=== PATIENT | male | born 1970 | race Caucasian/White ===

== ENCOUNTER 2023-10-23 17:21 | Emergency (ER) | payer OTHER, SELFPAY ==
[2023-10-23 17:28] VITALS: BP 150/98
--- NOTE | 2023-10-23 18:21 | ED.GENMED ---
History of Present Illness
General
Chief Complaint: Abdominal Pain
Source: patient
Exam Limitations: none
Time Seen by Provider: 10/23/23 18:20
Nursing documentation reviewed up to this point in time: agreed with
Course
Vital Signs
Initial and Last Documented VS:
Initial Vital Signs
Temp Pulse Resp BP Pulse Ox
98.2 F 87 18 150/98 97
10/23/23 17:28 10/23/23 17:28 10/23/23 17:28 10/23/23 17:28 10/23/23 17:28
Last Documented Vital Signs
Temp Pulse Resp BP Pulse Ox
98.2 F 87 18 150/98 97
10/23/23 17:28 10/23/23 17:28 10/23/23 17:28 10/23/23 17:28 10/23/23 17:28
ED Attending Note
-
Portions of this chart may have been created with voice recognition software.� Occasional wrong word or��sound alike� substitutions may have occurred due to the inherent limitations of voice recognition software.
Discharge Plan
Discharge Date and Time
Print Language: TAJIK
[2023-10-23 19:21] LABS: % Basophils 0.3 % (0-2); % Eosinophils 1.3 % (0-6); % Immature Granulocytes 0.1 % (0-0.5); % Monocytes 9.5 % (1.7-9.3); % Neutrophils 57.8 % (42.2-75.2); Absolute Eosinophils 0.1 10^3/uL (0-0.7); Absolute Lymphocytes 2.3 10^3/uL (1.2-3.4); Absolute Monocytes 0.7 10^3/uL (0.1-0.6); Absolute Neutrophils 4.3 10^3/uL (1.4-6.5); Hematocrit 45.3 % (39.0-52.0); Hemoglobin 15.8 g/dL (13.0-18.0); Mean Corp Hgb Conc. 34.9 g/dL (33.0-37.0); Mean Corpuscular Hgb 30.6 pg (27.0-31.0); Mean Corpuscular Volume 87.6 fL (80.0-94.0); Mean Platelet Volume 10.4 fL (7.4-10.4); Nucleated Red Blood Cells % 0 % (-); Platelet Count 208 10^3/uL (130-400); Red Blood Cell Count 5.17 10^6/uL (4.70-6.10); Red Cell Dist. Width 12.6 % (11.5-14.5); White Blood Cell Count 7.5 10^3/uL (4.8-10.8)
[2023-10-23 19:49] LABS: ALT (SGPT) 20 U/L (0-50); AST (SGOT) 30 U/L (17-59); Albumin 4.4 g/dl (3.5-5.0); Alkaline Phosphatase 64 U/L (38-126); Blood Urea Nitrogen 25 mg/dl (9-20); Calcium 9.6 mg/dl (8.4-10.2); Carbon Dioxide 24 mmol/L (22-30); Chloride 104 mmol/L (98-107); Glucose 88 mg/dl (70-99); Potassium 4.2 mmol/L (3.5-5.1); Sodium 140 mmol/L (135-145); Total Bilirubin 0.8 mg/dl (0.2-1.3); Total Protein 6.8 g/dl (6.3-8.2); eGFR > 60.00
[2023-10-23 20:46] VITALS: BP 146/94
--- NOTE | 2023-10-23 21:16 | ED.GENMED ---
History of Present Illness
<Joselin Deshpande NP - Last Filed: 10/23/23 23:14>
General
Chief Complaint: Abdominal Pain
Source: patient
Exam Limitations: none
Time Seen by Provider: 10/23/23 18:20
Nursing documentation reviewed up to this point in time: agreed with
History of Present Illness
History of Present Illness:
Patient to ED with complaint of increasing pain and erythema at umbilicus. States he was diagnosed with a hernia >6mos ago. No issues until today. Denies fever/chills, n/v/d. Brought self to ED for eval
Past History
<Joselin Deshpande NP - Last Filed: 10/23/23 23:14>
Past History
ED Past Medical History: None
Review of Systems
<Joselin Deshpande NP - Last Filed: 10/23/23 23:14>
Review of Systems
Allergies reviewed?: Yes
All Other Systems: ROS reviewed and negative except as documented in HPI and ROS
Constitutional: Reports no symptoms
EENT: Reports no symptoms
Respiratory: Reports no symptoms
Cardiac: Reports no symptoms
ABD/GI: Reports abdominal pain (Pain and erythema at umbilicus)
: Reports no symptoms
Musculoskeletal: Reports no symptoms
Skin: Reports no symptoms
Neurological: Reports no symptoms
Psychiatric: Reports no symptoms
Phy Exam
<Joselin Deshpande NP - Last Filed: 10/23/23 23:14>
General Physical Exam
General Presentation: well appearing and mild distress
General age: appears stated age
General Skin: warm and dry
General Habitus: normal
General Mental: alert
Cardiovascular Exam
Cardiovascular Exam: regular rate/rhythm
Gastrointestinal Exam
Gastrointestinal Exam: normal bowel sounds, soft, no organomegaly, non distended, no cva tenderness and other (erythema and swelling at umbilicus, moderately tender.)
Musculoskeletal Exam
Musculoskeletal Exam: full ROM and neuro vasc intact
Skin Exam
Skin Exam: normal color, warm/dry and no rash
Psychiatric Exam
Psychiatric Exam: normal mood/affect
Course
<Joselin Deshpande NP - Last Filed: 10/23/23 23:14>
Orders/Labs/Results
Orders:
Orders
10/23/23 18:26
IV Insert/Care/Rem.- Treatment PRN
10/23/23 18:48
CT Abd/pelvis W Iv Cont Urgent
Comment:
Reason For Exam: umbilical pain, swelling, erythema
10/23/23 19:09
Complete Blood Count/With Diff Urgent
Comprehensive Metabolic Panel Urgent
10/23/23 21:14
Ketorolac [Toradol] 30 mg IV NOW STA
Abnormal Lab Results
10/23/23
19:09
Absolute Monos (auto) 0.7 H 10^3/uL
(0.1-0.6)
Monocytes % 9.5 H %
(1.7-9.3)
BUN 25 H mg/dl
(9-20)
10/23/23 19:09
10/23/23 19:09
Vital Signs
Initial and Last Documented VS:
Initial Vital Signs
Temp Pulse Resp BP Pulse Ox
98.2 F 87 18 150/98 97
10/23/23 17:28 10/23/23 17:28 10/23/23 17:28 10/23/23 17:28 10/23/23 17:28
Last Documented Vital Signs
Temp Pulse Resp BP Pulse Ox
98.2 F 70 18 146/94 97
10/23/23 17:28 10/23/23 20:46 10/23/23 17:28 10/23/23 20:46 10/23/23 17:28
<Rogelio Boss DO - Last Filed: 10/24/23 03:11>
Orders/Labs/Results
Orders:
Orders
10/23/23 18:26
IV Insert/Care/Rem.- Treatment PRN
10/23/23 18:48
CT Abd/pelvis W Iv Cont Urgent
Comment:
Reason For Exam: umbilical pain, swelling, erythema
10/23/23 19:09
Complete Blood Count/With Diff Urgent
Comprehensive Metabolic Panel Urgent
10/23/23 21:14
Ketorolac [Toradol] 30 mg IV NOW STA
Abnormal Lab Results
10/23/23
19:09
Absolute Monos (auto) 0.7 H 10^3/uL
(0.1-0.6)
Monocytes % 9.5 H %
(1.7-9.3)
BUN 25 H mg/dl
(9-20)
10/23/23 19:09
10/23/23 19:09
Vital Signs
Initial and Last Documented VS:
Initial Vital Signs
Temp Pulse Resp BP Pulse Ox
98.2 F 87 18 150/98 97
10/23/23 17:28 10/23/23 17:28 10/23/23 17:28 10/23/23 17:28 10/23/23 17:28
Last Documented Vital Signs
Temp Pulse Resp BP Pulse Ox
98.2 F 70 18 146/94 97
10/23/23 17:28 10/23/23 20:46 10/23/23 17:28 10/23/23 20:46 10/23/23 17:28
<Joselin Deshpande NP - Last Filed: 10/23/23 23:14>
*Radiology
Radiology exam reviewed: radiology read reviewed
*Pulse Oximetry
Patient hypoxic: no
*Critical Care Note
Total Time (30-74mins, 75-104mins- exclusive of procedures): Not Applicable
<Joselin Deshpande NP - Last Filed: 10/23/23 23:14>
Update Note
Update Note:
umbilical hernia with peritoneal fat on CT. Hernia reduced bedside by dr. Boss. Will discharge home and he will follow up with general surgery. Given instructions on s/s to return to ED and he is agreeable to plan.
ED Attending Note
<Joselin Deshpande NP - Last Filed: 10/23/23 23:14>
-
Portions of this chart may have been created with voice recognition software.� Occasional wrong word or��sound alike� substitutions may have occurred due to the inherent limitations of voice recognition software.
<Rogelio Boss DO - Last Filed: 10/24/23 03:11>
ED Attending Note
Patient seen and examined by attending physician: Yes
I performed the substantive portion of visit, reviewed & personally made and approve the management plan that is documented in note by myself or BENITA.: Yes
ED Attending Note:
Umbilical fat hernia reduced by me at bedside
Discharge Plan
Departure
Patient Disposition: Home (Routine Discharge)
Date of Disposition: 10/23/23
Time of Disposition: 21:14
Patient with high blood pressure during this ER visit?: No
Condition: Good
Covid-19: Not Applicable
Discharge Problem:
Hernia, umbilical
Instructions: Abdominal wall hernias
Referrals:
Reymundo Mendiola MD [Active] - Call in 1-3 days for appt
Skip Romero MD [Family Provider] -
Interventions
Interventions:
*Risk Screen - Suicide Last Done: 10/23/23 20:28
*General Assessment Last Done: 10/23/23 20:28
*Neglect/Abuse Screening Last Done: 10/23/23 20:28
*ED COVID-19 Vaccine History Last Done: 10/23/23 20:28
*Nursing Disposition Last Done: 10/23/23 22:08
XT-Unlgmr-Dtmwaocxoi Assessment Last Done: 10/23/23 20:28
Discharge Date and Time
Discharge Date/Time: 10/23/23 22:10
Print Language: EGYPTIAN
[2023-10-23] MEDS: TORADOL 30 MG IV (21:33)
== END 2023-10-23 22:10 | disposition home or self-care (01) ==
LOC: EMR 17:21
PROVIDERS: Emergency Medicine; EMERGENCY PHYSICIAN Emergency Medicine; FAMILY PHYSICIAN Family Medicine
DX: K42.9 Umbilical hernia without obstruction or gangrene (principal)
CPT/HCPCS: 99285; 96374; 74177; 80053; 85025; Q9967

== ENCOUNTER 2023-12-04 06:39 | Day surgery (SDC) | payer OTHER, SELFPAY ==
[2023-11-24 08:32] VITALS: BMI 26.6
[2023-12-04] VITALS (8 sets, daily range): BP systolic 117–143; BP diastolic 75–99; BMI 26.6
--- NOTE | 2023-12-04 07:35 | W.SUR.PREOP ---
Pre-Operative Surgical Note
-
I have examined this patient prior to the performance of the scheduled procedure.
The patient's condition is unchanged from the time of the current History and
Physical and the patient is able to undergo the scheduled procedure.
[2023-12-04] MEDS: TYLENOL 1000 MG PO (08:54)
--- NOTE | 2023-12-04 11:50 | W.IMMPOSTOP ---
Surgical Immed Post Op Note
-
Primary Surgeon: Reymundo Mendiola MD
Assisting Surgeon: None
Pre-op Diagnosis: Umbilical hernia
Post-op Diagnosis: Same
Procedure Performed: Robotic umbilical hernia repair with mesh (HARLEEN approach)
Anesthesia Type: General
Specimen / Cultures: None
Estimated Blood Loss: 7 cc
Complications: None
Operative Findings: 1.5 cm umbilical hernia closed in the transverse direction with a 0 V-Loc 180. Repair reinforced with a 11 cm x 11 cm Bard soft uncoated polypropylene mesh placed in the preperitoneal space.
--- NOTE | 2023-12-04 11:51 | OR.RPT ---
Operative Report
Operative Report
Patient Name: Chester Espino
: 1970
Date of Operation: 12/04/2023
Preoperative Diagnosis: Umbilical hernia
Postoperative Diagnosis: Same
Procedure(s):
Robotic umbilical hernia repair with mesh (HARLEEN approach)
Surgeon(s):
Dr. Mendiola
Photolithographic Stripper(s):
LEIGH Martin
Anesthesia: General
Estimated Blood Loss: 7 cc
Urine Output: None
Drains/Lines/Implants:
11 x 11 cm round Bard soft mesh
Specimens:
None
HPI/Surgical Indications:
This is a 53-year-old male who was seen in my office for a symptomatic umbilical bulge and diagnosed with a reducible umbilical hernia. Risks/Benefits/Alternatives were discussed at length, and the patient agreed to proceed with surgery.
Findings:
1.5 cm umbilical hernia containing preperitoneal fat
Procedure Description:
The patient was brought to the Operating Room and placed in the supine position with the arms tucked. IV antibiotics were infused and Venodyne stockings placed. Following uneventful induction of general endotracheal anesthesia, an orogastric tube
were placed. The abdomen was prepped and draped in the usual sterile fashion. The abdomen was entered using a Veress technique which required 1 pass, pneumoperitoneum to 15 mmHg was obtained without difficulty. An 8mm trochar was passed through
the abdominal wall roughly 20 cm laterally from the defect in the left upper quadrant, we then confirmed that no inadvertent injury was made while passing the trocar or Veress needle. We then placed two additional 8 mm ports in the left lower
quadrant. Bilateral tap blocks were performed. The robot was docked. We then introduced our prograsper through the inferior/left hand port and a monopolar scissors through the superior port. We then turned our attention to the hernia which had
no intra-abdominal contents. We then began taking a flap down roughly 6 cm away from the defect and roughly 12 cm in length taking care to stay in the pretransversalis plane. The preperitoneal fat was taken down off of the posterior rectus sheath
both superior and inferior to the hernia defect such that we were able to get our 'volcano sign'. We then worked on reducing the defect which contained preperitoneal fat and continued our dissection out laterally for an additional 6 to 7 cm. Once
our flap was created we introduced a ruler and a 0 V-Loc 180. The main hernia defect measured 1.5 cm. The pocket measured 12 x 12 cm. I had my investment sales assistant cut a 11 x 11 cm piece of Bard soft mesh marked with 0 Vicryl suture at the center, as I
closed the umbilical defect. The mesh was then sutured to the posterior rectus sheath in 4 quadrants with 2-0 vircyls to ensure good apposition. A 2-0 Monocryl was introduced which was used to close our flap. A small rent in the peritoneal flap was
closed with a 2-0 Vicryl suture. All sutures were removed. The robot was undocked. The ports were removed under direct visualization and pneumoperitoneum was evacuated. The port sites were closed with 4-0 Monocryl followed by Dermabond. Counts
were correct and overall, the patient tolerated the procedure well and was taken to the Recovery Room postoperatively in stable condition.
I was the attending physician and performed the procedure with assistance from the PA above. The assistance of LEIGH Martin was required due to the complexity of the procedure. During the procedure Katerine assisted with retraction, resection, and
closure of the wound. The assistance of LEIGH Martin was required due to the complexity of the procedure. During the procedure Katerine assisted with retraction, resection, and closure of the wound. I was present for all portions of the case,
excluding skin closure.
Reymundo Mendiola MD
[2023-12-04] MEDS: DILAUDID 0.25 MG IV (12:03)
== END 2023-12-04 13:39 | disposition home or self-care (01) ==
LOC: SDS 06:39
PROVIDERS: ATTENDING PHYSICIAN Surgery; FAMILY PHYSICIAN Family Medicine
DX: K42.9 Umbilical hernia without obstruction or gangrene (principal)
CPT/HCPCS: 49591; 36415; 93005; C1781

== ENCOUNTER → 2024-08-19 10:17 | Outpatient (REF) | payer OTHER, SELFPAY | LOC: RAD 10:17 | PROVIDERS: ATTENDING PHYSICIAN Hospitalist | DX: M79.672 Pain in left foot (principal) | CPT/HCPCS: 73630 ==